=== PATIENT | male | born 1985 | race Caucasian/White ===

== ENCOUNTER 2022-09-05 10:45 | Emergency (ER) | payer OTHER, SELFPAY ==
[2022-09-05 11:06] VITALS: BP 121/83; PULSE 63; RESP 16; TEMP 36.3; O2SAT 99
[2022-09-05] MEDS: Fluorescein STRIPS 100/BOX 1 MG (11:20)
[2022-09-05] MEDS: Tetracaine 0.5% 4 ML BTL (11:20)
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
== END 2022-09-05 11:55 | disposition home or self-care (01) ==
PROVIDERS: Emergency Provider Physician Assistant
DX: S05.01XA Injury of conjunctiva and corneal abrasion without foreign body, right eye, initial encounter (principal); W22.8XXA Striking against or struck by other objects, initial encounter
CPT/HCPCS: 99283; 99284